=== PATIENT | male | born 1995 | race Caucasian/White ===

== ENCOUNTER 2018-11-16 10:16 | Outpatient (CLI) | payer OTHER, BC ==
--- NOTE | 2018-11-16 15:21 | XRAY Report ---
Reason: KNEE PAIN, RIGHT; KNEE PAIN, LEFT Procedure Date: 11/16/2018 Accession Number: [id number] / [id number] Procedure: [facility] - Knee 3 View BILAT CPT Code: FULL RESULT: EXAMS: 1. Right Knee Radiography 2. Left Knee Radiography EXAM DATE:11/16/2018 10:41 AM. CLINICAL HISTORY:Knee pain, right; knee pain, left. COMPARISON: None. TECHNIQUE: 3 views each. FINDINGS: Right Knee: Bones: Normal. No fractures or bone lesions. Joints: Normal. No effusion. No subluxations. Soft Tissues: Normal. No soft tissue swelling. Left Knee: Bones: Normal. No fractures or bone lesions. Joints: Normal. No effusion. No subluxations. Soft Tissues: Normal. No soft tissue swelling. IMPRESSION: No acute bony abnormality. [facility]
== END 2018-11-16 10:17 | disposition home or self-care (01) ==
LOC: DI.WCP 10:16
PROVIDERS: ATTEND Family Medicine
DX: M25.561 Pain in right knee (principal); M25.562 Pain in left knee